=== PATIENT | male | born 1965 | race Caucasian/White ===

== ENCOUNTER 2017-08-19 17:20 | Inpatient (IN) | payer OTHER ==
[2017-08-19] MEDS ORDERED: NORMAL SALINE 1000 ML 1,000 ML IV ONE (17:56)
--- NOTE | 2017-08-19 17:59 | ER Document Report ---
ED Medical Screen (RME) - General Chief Complaint: Probable Seizure Stated Complaint: ETOH Time Seen by Provider: 08/19/17 17:48 Notes: RAPID MEDICAL EVALUATION DISCLOSURE I have seen this patient as part of a Rapid Medical Evaluation and, if applicable, placed any initially appropriate orders. The patient will be seen and fully evaluated, including a full history and physical exam, by a provider ( in Main ED or Fast Track) when a room becomes available. 51-year-old male PMH seizure disorder EtOH abuse here with aminata who reports that they found him at home naked with the house "a complete mess". Earlier in the day, he states that he had a seizure and fell and hit his head on something but does not know what he hit it on. When he woke up, he walks to the house and does not remember much after that. Family states that this is what he was acting like after his seizures. He was reportedly taken off seizure medication 1 year ago and they do not know the name of the seizure medication. His last seizure was 1 year ago. He normally drinks several shots of liquor daily and his last drink was earlier today. EXAM Alert to name and city but not year and president Clear to auscultation bilaterally Tachycardic, regular rhythm TRAVEL OUTSIDE OF THE [place] IN LAST 30 DAYS: No - Related Data Allergies/Adverse Reactions: No Known Allergies Allergy (Verified 08/19/17 17:22) Past Medical History - Social History Chew tobacco use (# tins/day): No Frequency of alcohol use: Heavy - Past Medical History Cardiac Medical History: Reports: Hx Hypertension Neurological Medical History: Reports: Hx Seizures Renal/ Medical History: Denies: Hx Peritoneal Dialysis Physical Exam - Vital signs Vitals: Temp Pulse Resp BP Pulse Ox 99.6 F 141 H 16 158/97 H 94 08/19/17 17:31 08/19/17 17:31 08/19/17 17:31 08/19/17 17:31 08/19/17 17:31 Course - Vital Signs Vital signs: Temp Pulse Resp BP Pulse Ox 99.6 F 141 H 16 158/97 H 94 08/19/17 17:31 08/19/17 17:31 08/19/17 17:31 08/19/17 17:31 08/19/17 17:31
--- NOTE | 2017-08-19 18:24 | RADIOLOGY REPORT (SQ) ---
EXAM DESCRIPTION: RIBS RIGHT W/PA CHEST COMPLETED DATE/TIME: 08/19/2017 6:09 pm REASON FOR STUDY: s/p fall and trauma to R lateral lower ribs COMPARISON: None. TECHNIQUE: Frontal view of the chest and additional views of the right ribs acquired. NUMBER OF VIEWS: 5 LIMITATIONS: None. FINDINGS: FRONTAL CXR: No pneumothorax. No pleural effusion. No atelectasis or infiltrates. RIBS: No displaced rib fractures. No lytic or blastic bony lesions. OTHER: No other significant finding. IMPRESSION: NO PNEUMOTHORAX. NO DISPLACED RIB FRACTURES. COMMENT: SITE OF TRAUMA/COMPLAINT MARKED/STAMP COMPLETED: Yes TECHNICAL DOCUMENTATION: JOB ID: [id number] [place]-72 2010 [employer]- All Rights Reserved Reading location - IP/workstation name: [email or web address]
--- NOTE | 2017-08-19 18:38 | RADIOLOGY REPORT (SQ) ---
EXAM DESCRIPTION: CT HEAD WITHOUT COMPLETED DATE/TIME: 08/19/2017 6:18 pm REASON FOR STUDY: sz, s/p fall, confused; eval bleed infarct COMPARISON: MRI 08/30/2015 TECHNIQUE: Axial images acquired through the brain without intravenous contrast. Images reviewed wi th bone, brain and subdural windows. Images stored on PACS. All CT scanners at this facility use dose modulation, iterative reconstruction, and/or weight based d osing when appropriate to reduce radiation dose to as low as reasonably achievable (ALARA). [facility]: Dose Right [facility]: CareDose [facility]: Dose Right [facility]: Teradose 4D [facility]: BEETmobile RADIATION DOSE: CT Rad equipment meets quality standard of care and radiation dose reduction techniq ues were employed. CTDIvol: 53.2 mGy. DLP: 1017 mGy-cm. mGy. LIMITATIONS: None. FINDINGS: VENTRICLES: Normal size and contour. CEREBRUM: No hemorrhage. No midline shift. No evidence for acute infarction. Normal de anda/white ma tter differentiation. No areas of low density in the white matter. CEREBELLUM: No hemorrhage. No alteration of density. No evidence for acute infarction. EXTRAAXIAL SPACES: No fluid collections. . ORBITS AND GLOBE: No intra- or extraconal masses. Normal contour of globe without masses. CALVARIUM: Similar 3.3 x 2.3 x 2.1 cm calcified osseous mass on the clivus -anterior skullbase. No fracture. PARANASAL SINUSES: No fluid or mucosal thickening. SOFT TISSUES: No hematoma. OTHER: No other significant finding. IMPRESSION: No acute intracranial findings. Similar 3.3 x 2.3 x 2.1 cm calcified osseous mass on th e clivus -anterior skullbase. EVIDENCE OF ACUTE STROKE: NO. COMMENT: Quality ID # [id number]: Final reports with documentation of one or more dose reduction techniques (e.g., Automated exposure control, adjustment of the mA and/or kV according to patient size, use of iterative reconstruction technique) TECHNICAL DOCUMENTATION: JOB ID: [id number] [place]-72 2010 [employer]- All Rights Reserved Reading location - IP/workstation name: [email or web address]
[2017-08-19 19:06] LABS: HEMATOCRIT 48.2 % (37.9-51.0); HEMOGLOBIN 16.6 g/dL (13.5-17.0); MEAN CORPUSCULAR HEMOGLOBIN 34.6 pg (27.0-33.4); MEAN CORPUSCULAR HGB CONC 34.4 g/dL (32.0-36.0); MEAN CORPUSCULAR VOLUME 101 fl (80-97); PLATELET COUNT 158 10^3/uL (150-450); RED CELL DISTRIBUTION WIDTH 12.1 % (11.5-14.0); WHITE BLOOD COUNT 25.3 10^3/uL (4.0-10.5)
[2017-08-19 19:17] LABS: ALANINE AMINOTRANSFERASE 178 U/L (21-72); ALBUMIN 5.3 g/dL (3.5-5.0); ALKALINE PHOSPHATASE 86 U/L (38-126); ANION GAP 18 (5-19); ASPARTATE AMINO TRANSFERASE 259 U/L (17-59); BILIRUBIN,DIRECT 0.7 mg/dL (0.0-0.4); BILIRUBIN,TOTAL 1.3 mg/dL (0.2-1.3); BLOOD UREA NITROGEN 21 mg/dL (7-20); CALCIUM 10.5 mg/dL (8.4-10.2); CARBON DIOXIDE 22 mmol/L (22-30); CHLORIDE 101 mmol/L (98-107); GLUCOSE 129 mg/dL (75-110); POTASSIUM 3.9 mmol/L (3.6-5.0); TOTAL PROTEIN 8.4 g/dL (6.3-8.2)
[2017-08-19 19:19] LABS: ALCOHOL < 10 mg/dL (NONE DETECTED)
[2017-08-19 19:23] LABS: ABSOLUTE LYMPHOCYTES# (MANUAL) 0.8 10^3/uL (0.5-4.7); ABSOLUTE MONOCYTES # (MANUAL) 2.3 10^3/uL (0.1-1.4); ABSOLUTE NEUTROPHILS# (MANUAL) 22.3 10^3/uL (1.7-8.2); BASOPHILS % (MANUAL) 0 % (0-2); EOSINOPHILS % (MANUAL) 0 % (0-6); LYMPHOCYTES % (MANUAL) 3 % (13-45); MONOCYTES % (MANUAL) 9 % (3-13); SEGMENTED NEUTROPHILS % (MAN) 88 % (42-78); TOTAL CELLS COUNTED 100
[2017-08-19 19:24] LABS: PLATELET COMMENT ADEQUATE; TOXIC GRANULATION SLIGHT
[2017-08-19 20:10] LABS: AMORPHOUS SEDIMENT,URINE TRACE /HPF; APPEARANCE,URINE TURBID; BILIRUBIN,URINE NEGATIVE (NEGATIVE); COLOR,URINE AMBER; GLUCOSE, URINE NEGATIVE (NEGATIVE); KETONES,URINE 20 mg/dL (NEGATIVE); LEUKOCYTE ESTERASE,URINE NEGATIVE (NEGATIVE); NITRITE,URINE NEGATIVE (NEGATIVE); PROTEIN,URINE 100 mg/dL (NEGATIVE); URINE SPECIFIC GRAVITY 1.019; UROBILINOGEN,URINE NEGATIVE mg/dL (<2.0)
[2017-08-19 20:21] LABS: URINE AMPHETAMINES SCREEN NEGATIVE; URINE BARBITURATES SCREEN NEGATIVE; URINE BENZODIAZEPINES SCREEN NEGATIVE; URINE COCAINE SCREEN NEGATIVE; URINE MARIJUANA (THC) SCREEN NEGATIVE; URINE METHADONE SCREEN NEGATIVE; URINE PHENCYCLIDINE SCREEN NEGATIVE
[2017-08-19] MEDS ORDERED: LIDOCAINE 1% INJ-PF (10 MG/ML) 30 ML SDV INJ ONE (21:36)
[2017-08-19] MEDS ORDERED: LORAZEPAM INJ 2 MG/1 ML VIAL IV ONE (21:38)
[2017-08-19] MEDS ORDERED: CEFEPIME 2 GM/D5W RTU 2 GM/50 ML RTUPB IV ONE (21:38)
[2017-08-19] MEDS ORDERED: CEFTRIAXONE INJ 1000 MG VIAL IV ONE (21:59)
[2017-08-19] MEDS ORDERED: ACYCLOVIR SODIUM INJ/PF 500 MG/10 ML SDV IV ONE ×2 (22:00→23:05)
[2017-08-19] MEDS ORDERED: VANCOMYCIN HCL INJ 1000 MG VIAL IV ONE (22:00)
[2017-08-19] MEDS ORDERED: RINGERS SOLUTION,LACTATED 1,000 ML IV ONE (22:00)
--- NOTE | 2017-08-19 22:05 | ER Document Report ---
ED General - General Chief Complaint: Probable Seizure Stated Complaint: ETOH Time Seen by Provider: 08/19/17 17:48 Cannot obtain history due to: Altered mental status Notes: Patient is a 51-year-old male with a past medical history of chronic alcohol dependence who presents with confusion. History is limited as the patient is oriented only to person. His significant other at the bedside reports that he was naked, confused, found spelled out on the ground. She thought he had been drinking heavily today and is quite surprised to hear that his alcohol is negative today. She denies that the patient ever has a history of similar symptoms in the past. She does note that at baseline he is overall a healthy individual with the exception of his alcohol dependence. She notes his baseline will be to be alert, oriented and be able to have a full normal conversation. Nothing has noted improvement or worsening of his symptoms. TRAVEL OUTSIDE OF THE [place] IN LAST 30 DAYS: No - Related Data Allergies/Adverse Reactions: No Known Allergies Allergy (Verified 08/19/17 17:22) Past Medical History - General Information source: Relative Cannot obtain history due to: Altered mental status - Social History Smoking Status: Current Every Day Smoker Chew tobacco use (# tins/day): No Frequency of alcohol use: Heavy Drug Abuse: None Lives with: Spouse/Significant other Family History: Reviewed & Not Pertinent Patient has suicidal ideation: No Patient has homicidal ideation: No - Past Medical History Cardiac Medical History: Reports: Hx Hypertension Neurological Medical History: Reports: Hx Seizures Renal/ Medical History: Denies: Hx Peritoneal Dialysis Review of Systems - Review of Systems Notes: Constitutional: Positive for fever and confusion HENT: Negative for sore throat. Eyes: Negative for visual changes. Cardiovascular: Negative for chest pain. Respiratory: Negative for shortness of breath. Gastrointestinal: Negative for abdominal pain, vomiting or diarrhea. Genitourinary: Negative for dysuria. Musculoskeletal: Negative for back pain. Skin: Negative for rash. Neurological: Positive for headache 10 point ROS negative except as marked above and in HPI. Physical Exam - Vital signs Vitals: Temp Pulse Resp BP Pulse Ox 99.6 F 141 H 16 158/97 H 94 08/19/17 17:31 08/19/17 17:31 08/19/17 17:31 08/19/17 17:31 08/19/17 17:31 Interpretation: Tachycardic, Febrile Notes: PHYSICAL EXAMINATION: GENERAL: Appears flushed, somewhat uncomfortable and overall unwell HEAD: Atraumatic, normocephalic. EYES: Pupils equal round and reactive to light, extraocular movements intact, sclera anicteric, conjunctiva are normal. ENT: nares patent, oropharynx clear without exudates. Dry mucous membranes. NECK: Normal range of motion, supple without lymphadenopathy LUNGS: Breath sounds clear to auscultation bilaterally and equal. No wheezes rales or rhonchi. HEART: Regular tachycardia without murmurs ABDOMEN: Soft, nontender, normoactive bowel sounds. No guarding, no rebound. No masses appreciated. EXTREMITIES: Normal range of motion, no pitting or edema. No cyanosis. NEUROLOGICAL: Face symmetric. Tongue protrudes midline. Extraocular motions intact. Pupils are 2 mm and equally reactive. Normal speech, normal gait. 5 out of 5 strength in both the distal and proximal upper and lower extremities bilaterally. Sensation is grossly intact throughout. PSYCH: Alert, oriented only to self. Appears profoundly confused SKIN: Warm, Dry, normal turgor, traumatic ecchymosis to the right lower flank Course - Re-evaluation Re-evalutation: 08/19/17 22:02 Patient presents profoundly confused per family, found naked, altered, normally a alert and oriented 4 at baseline. The patient is not intoxicated and his alcohol level is 0. Although patient could be having alcohol withdrawal as the etiology of some degree of his hypertension and tachycardia, he is also febrile and has a marked leukocytosis making this less likely etiology of his presentation. Moreover he is not tremulous is not and does not appear to be actively withdrawing from alcohol. His chest x-ray shows rib fractures but no evidence of acute pneumonia. Urinalysis is clear. He has no skin findings on examination to suggest an infectious etiology. Given his fever, leukocytosis, tachycardia, and profound confusion on assessment where he is only oriented to his name I did proceed with a lumbar puncture. Patient had difficulty following directions during lumbar puncture and continued to move frequently. We were able to successfully obtain CSF on the second attempt although it was a traumatic tap as the patient moved while I was in the CSF space causing some increased bleeding into the foot second through fourth tubes. The first tube is the clearest tube but again I do not suspect a subarachnoid hemorrhage as the etiology of his presentation and therefore I anticipate there will be an increasing red blood cell count but do not believe this is clinically relevant as I attribute this to the patient moving during the lumbar puncture CSF sampling. CT the head unremarkable. Patient continues to be markedly tachycardic, somewhat lethargic and disoriented. He is critically ill and will require frequent and regular reassessments. I have ordered thiamine, folate, a second liter of IV fluids, 2 mg of Ativan, 2 g of ceftriaxone, 2 g of vancomycin, and 1750 mg of acyclovir. CSF studies are pending. He will require hospitalization. Will continue to reassess frequently. 08/19/17 22:51 Patient's tachycardia has improved, current heart rate is 98 bpm. He continues to be confused, delirious, no significant change from prior. CSF studies are pending. 08/20/17 00:05 Patient's heart rate continues to be improved. He overall clinically appears improved as well. Continues to be confused. Antibiotics, antivirals thiamine and folate confused. I discussed the case with the hospitalist who has accepted the patient for admission. - Vital Signs Vital signs: Temp Pulse Resp BP Pulse Ox 100.1 F 141 H 20 158/90 H 95 08/19/17 23:11 08/19/17 17:31 08/19/17 19:49 08/19/17 19:49 08/19/17 19:49 - Laboratory Result Diagrams: 08/19/17 18:50 08/19/17 18:50 Laboratory results interpreted by me: 08/19/17 08/19/17 08/19/17 18:50 18:50 18:50 WBC 25.3 H MCV 101 H MCH 34.6 H Seg Neuts % (Manual) 88 H Lymphocytes % (Manual) 3 L Abs Neuts (Manual) 22.3 H Abs Monocytes (Manual) 2.3 H BUN 21 H Glucose 129 H Calcium 10.5 H Direct Bilirubin 0.7 H AST 259 H ALT 178 H Ammonia < 8.7 L Total Protein 8.4 H Albumin 5.3 H Urine Protein Urine Ketones Urine Blood Urine Ascorbic Acid CSF WBC CSF RBC CSF Glucose CSF Total Protein 08/19/17 08/19/17 08/19/17 19:45 21:55 21:55 WBC MCV MCH Seg Neuts % (Manual) Lymphocytes % (Manual) Abs Neuts (Manual) Abs Monocytes (Manual) BUN Glucose Calcium Direct Bilirubin AST ALT Ammonia Total Protein Albumin Urine Protein 100 H Urine Ketones 20 H Urine Blood LARGE H Urine Ascorbic Acid 40 H CSF WBC 21 H CSF RBC 3430 H CSF Glucose 91 H CSF Total Protein 338 H - Diagnostic Test Radiology reviewed: Image reviewed, Reports reviewed Radiology results interpreted by me: 08/19/17 22:51 CT head: No acute intercranial bleed or mass Chest x-ray: No acute infiltrate, right lower rib fractures Procedures - Lumbar Puncture Lumbar puncture Consent obtained: Yes - Verbal Lumbar puncture pre-procedure: Sterile PPE donned, Chloraprep applied Patient position: Sitting Needle size: 22 Lumbar puncture location: L4-5 Anesthetic type: 1% Lidocaine mL's of anesthetic: 5 Amount/type of drainage: 4 cc clear, bloody Number of attempts: 2 Complications: No Notes: 08/20/17 02:27 Patient moved well lumbar puncture needle was in the CSF space. This did result in the latter tubes becoming bloody Critical Care Note - Critical Care Note Total time excluding time spent on procedures (mins): 40 Comments: Critical care time spent obtaining history from patient or surrogate, discussions with consultants, development of treatment plan with patient or surrogate, evaluation of patient's response to treatment, examination of patient , ordering and performing treatments and interventions, ordering and review of laboratory studies, re-evaluation of patient's condition, ordering and review of radiographic studies and review of old charts Discharge - Discharge Clinical Impression: Dehydration Sepsis Qualifiers: Sepsis type: sepsis due to unspecified organism Qualified Code(s): A41.9 - Sepsis, unspecified organism Altered mental status Qualifiers: Altered mental status type: disorientation Qualified Code(s): R41.0 - Disorientation, unspecified Alcohol dependence Qualifiers: Substance use status: unspecified alcohol-induced disorder Qualified Code(s): F10.29 - Alcohol dependence with unspecified alcohol-induced disorder Condition: Fair Disposition: ADMITTED INPATIENT Admitting Provider: Hospitalist Unit Admitted: Telemetry
[2017-08-19] MEDS ORDERED: THIAMINE HCL 100 MG, FOLIC ACID 1 MG in NORMAL SALINE 250 ML IV SCH (22:15)
[2017-08-19 22:36] LABS: GLUCOSE,CSF 91 mg/dL (40-70)
[2017-08-19 22:51] LABS: PROTEIN,CSF 338 mg/dL (12-60)
[2017-08-19 22:55] LABS: CSF TUBE NUMBER 1
[2017-08-19 22:56] LABS: APPEARANCE TUBE 1 SLIGHTLY HAZY; APPEARANCE TUBE 2 CLOUDY; APPEARANCE TUBE 3 CLOUDY; COLOR TUBE 1 PINK; COLOR TUBE 2 RED; COLOR TUBE 3 RED; COLOR TUBE 4 RED
[2017-08-19 22:58] LABS: APPEARANCE ALL TUBES CLOUDY; APPEARANCE TUBE 4 CLOUDY; CSF TOTAL VOLUME 2.8 CC; VOLUME TUBE 3 0.5 CC; VOLUME TUBE 4 0.3 CC
[2017-08-19 23:05] LABS: RED BLOOD CELL,CSF 3430 /uL (0-10); WHITE BLOOD CELL,CSF 21 /uL (0-5)
[2017-08-19] MEDS ORDERED: THIAMINE HCL INJ 200 MG/2 ML VIAL ONE (23:06)
[2017-08-19] MEDS ORDERED: FOLIC ACID INJ 5 MG/1 ML 10 ML VIAL IV PRN (23:46)
[2017-08-20] MEDS ORDERED: ONDANSETRON HCL INJ/PF 4 MG/2 ML SDV IV PRN (00:13)
[2017-08-20] MEDS ORDERED: HALOPERIDOL LACTATE INJ 5 MG/1 ML VIAL IV PRN (00:22)
[2017-08-20] MEDS ORDERED: VANCOMYCIN HCL 0 MG in DEXTROSE 5%-WATER 250 ML IV NR (00:30)
--- NOTE | 2017-08-20 00:37 | PDOC H&P ---
History of Present Illness History of Present Illness: PONCE LOPEZ is a 51 year old male patient brought by family members for acute confusional state and bizarre behavior. Since patient is mentally altered history is obtained from the ER attending note and his . Per his patient is alert and oriented at his baseline this afternoon she found him neck and roaming in his room. Patient drinks hard liquor namely Rum half bottle daily. His last drink is yesterday. His initial blood work shows blood alcohol level of 0, markedly leukocytosis with white cell count of 25,[address] head is negative. Patient also noticed to have low-grade fever of 100.7. With history of confusion, tachycardia, leukocytosis and fever they are attending considered the possibility of meningitis and he did lumbar puncture and patient covered to his testicular failure cefepime and vancomycin. Further detailed history and review of systems unobtainable. Past Medical History Cardiac Medical History: Reports: Hypertension Neurological Medical History: Reports: Seizures Past Surgical History Past Surgical History: Reports: None Social History Smoking Status: Current Every Day Smoker - Advance Directive Resuscitation Status: Full Code Family History Parental Family History Reviewed: No - Unobtainable Children Family History Reviewed: Unknown Sibling(s) Family History Reviewed.: Unknown Medication/Allergy Allergies/Adverse Reactions: No Known Allergies Allergy (Verified 08/19/17 17:22) Review of Systems ROS unobtainable: Due to mental status Physical Exam Vital Signs: Temp Pulse Resp BP Pulse Ox 100.1 F 141 H 20 158/90 H 95 08/19/17 23:11 08/19/17 17:31 08/19/17 19:49 08/19/17 19:49 08/19/17 19:49 Intake & Output 08/18/17 08/19/17 08/20/17 06:59 06:59 06:59 Weight 86.6 kg General appearance: PRESENT: no acute distress Eye exam: PRESENT: conjunctival injection Respiratory exam: PRESENT: clear to auscultation deisy. ABSENT: rales, rhonchi, wheezes Cardiovascular exam: PRESENT: tachycardia GI/Abdominal exam: PRESENT: normal bowel sounds, soft. ABSENT: distended, guarding, mass, organolmegaly, rebound, tenderness Neurological exam: PRESENT: alert, altered, awake Psychiatric exam: PRESENT: depressed Results Laboratory Results: 08/19/17 18:50 08/19/17 18:50 08/19/17 08/19/17 08/19/17 18:50 18:50 18:50 WBC 25.3 H RBC 4.80 Hgb 16.6 Hct 48.2 MCV 101 H MCH 34.6 H MCHC 34.4 RDW 12.1 Plt Count 158 Seg Neutrophils % Not Reportable Lymphocytes % Not Reportable Monocytes % Not Reportable Eosinophils % Not Reportable Basophils % Not Reportable Absolute Neutrophils Not Reportable Absolute Lymphocytes Not Reportable Absolute Monocytes Not Reportable Absolute Eosinophils Not Reportable Absolute Basophils Not Reportable Sodium 141.0 Potassium 3.9 Chloride 101 Carbon Dioxide 22 Anion Gap 18 BUN 21 H Creatinine 1.11 Est GFR ( Amer) > 60 Est GFR (Non-Af Amer) > 60 Glucose 129 H Lactic Acid Calcium 10.5 H Total Bilirubin 1.3 AST 259 H ALT 178 H Alkaline Phosphatase 86 Ammonia < 8.7 L Total Protein 8.4 H Albumin 5.3 H Urine Color Urine Appearance Urine pH Ur Specific [place] Urine Protein Urine Glucose (UA) Urine Ketones Urine Blood Urine Nitrite Ur Leukocyte Esterase Urine WBC (Auto) Urine RBC (Auto) Fluid Tube Number CSF Volume CSF Appearance CSF WBC CSF RBC CSF Color (1) CSF Appearance (1) CSF Color (2) CSF Appearance (2) CSF Color (3) CSF Appearance (3) CSF Color (4) CSF Appearance (4) CSF Glucose CSF Total Protein 08/19/17 08/19/17 08/19/17 19:45 20:38 21:55 WBC RBC Hgb Hct MCV MCH MCHC RDW Plt Count Seg Neutrophils % Lymphocytes % Monocytes % Eosinophils % Basophils % Absolute Neutrophils Absolute Lymphocytes Absolute Monocytes Absolute Eosinophils Absolute Basophils Sodium Potassium Chloride Carbon Dioxide Anion Gap BUN Creatinine Est GFR ( Amer) Est GFR (Non-Af Amer) Glucose Lactic Acid 1.5 Calcium Total Bilirubin AST ALT Alkaline Phosphatase Ammonia Total Protein Albumin Urine Color GUNNER Urine Appearance TURBID Urine pH 5.0 Ur Specific [place] 1.019 Urine Protein 100 H Urine Glucose (UA) NEGATIVE Urine Ketones 20 H Urine Blood LARGE H Urine Nitrite NEGATIVE Ur Leukocyte Esterase NEGATIVE Urine WBC (Auto) 4 Urine RBC (Auto) 1 Fluid Tube Number 1 CSF Volume 2.8 CSF Appearance CLOUDY CSF WBC 21 H CSF RBC 3430 H CSF Color (1) PINK CSF Appearance (1) SLIGHTLY HAZY CSF Color (2) RED CSF Appearance (2) CLOUDY CSF Color (3) RED CSF Appearance (3) CLOUDY CSF Color (4) RED CSF Appearance (4) CLOUDY CSF Glucose CSF Total Protein 08/19/17 21:55 WBC RBC Hgb Hct MCV MCH MCHC RDW Plt Count Seg Neutrophils % Lymphocytes % Monocytes % Eosinophils % Basophils % Absolute Neutrophils Absolute Lymphocytes Absolute Monocytes Absolute Eosinophils Absolute Basophils Sodium Potassium Chloride Carbon Dioxide Anion Gap BUN Creatinine Est GFR ( Amer) Est GFR (Non-Af Amer) Glucose Lactic Acid Calcium Total Bilirubin AST ALT Alkaline Phosphatase Ammonia Total Protein Albumin Urine Color Urine Appearance Urine pH Ur Specific [place] Urine Protein Urine Glucose (UA) Urine Ketones Urine Blood Urine Nitrite Ur Leukocyte Esterase Urine WBC (Auto) Urine RBC (Auto) Fluid Tube Number CSF Volume CSF Appearance CSF WBC CSF RBC CSF Color (1) CSF Appearance (1) CSF Color (2) CSF Appearance (2) CSF Color (3) CSF Appearance (3) CSF Color (4) CSF Appearance (4) CSF Glucose 91 H CSF Total Protein 338 H Impressions: Head CT 08/19/17 17:55 IMPRESSION: No acute intracranial findings. Similar 3.3 x 2.3 x 2.1 cm calcified osseous mass on the clivus -anterior skullbase. EVIDENCE OF ACUTE STROKE: NO. Ribs w/Chest X-Ray 08/19/17 17:55 IMPRESSION: NO PNEUMOTHORAX. NO DISPLACED RIB FRACTURES. Assessment & Plan - Diagnosis (1) Alcohol dependence Qualifiers: Substance use status: unspecified alcohol-induced disorder Qualified Code(s ): F10.29 - Alcohol dependence with unspecified alcohol-induced disorder (2) Altered mental status Qualifiers: Altered mental status type: disorientation Qualified Code(s): R41.0 - Disorientation, unspecified Is this a current diagnosis for this admission?: Yes Plan: Patient empirically started on Ceclor, cefepime and vancomycin. For possible alcohol withdrawal patient comfort with Ativan, diazepam and Haldol as needed. (3) Sepsis Qualifiers: Sepsis type: sepsis due to unspecified organism Qualified Code(s): A41.9 - Sepsis, unspecified organism Is this a current diagnosis for this admission?: Yes Plan: She has leukocytosis, tachycardia, fever and altered mental status Patient has been started on cefepime ossicular present vancomycin. - Time Time Spent: 30 to 50 Minutes - Inpatient Certification Medical Necessity: Need Close Monitoring Due to Risk of Patient Decompensation, Need for IV Antibiotics
[2017-08-20] MEDS ORDERED: ACYCLOVIR SODIUM INJ/PF 500 MG/10 ML SDV IV PRN (00:49)
[2017-08-20] MEDS ORDERED: NORMAL SALINE IV ONE (01:00)
[2017-08-20] MEDS ORDERED: ACYCLOVIR SODIUM IV ONE (01:00)
[2017-08-20] MEDS: OXYCODONE-ACETAMINOPHEN 5-325 MG TABLET PO PRN (04:07)
[2017-08-20] MEDS ORDERED: THIAMINE HCL 100 MG, FOLIC ACID 1 MG in NORMAL SALINE 250 ML IV ONE (04:45)
[2017-08-20] MEDS: LANSOPRAZOLE 30 MG TAB.RAP.DR PO SCH (05:41)
[2017-08-20] MEDS ORDERED: DIAZEPAM 5 MG TABLET PO SCH (06:00)
[2017-08-20] MEDS ORDERED: ACYCLOVIR SODIUM 750 MG in NORMAL SALINE 250 ML IV SCH (06:00)
[2017-08-20] MEDS: CEFEPIME HCL 2 GM in DEXTROSE 5%-WATER 50 ML IV SCH ×2 (09:51→21:08)
[2017-08-20] MEDS: ENOXAPARIN SODIUM INJ 40 MG/0.4 ML DISP.SYRIN SUBCUT SCH (09:51)
[2017-08-20] MEDS: VANCOMYCIN HCL 1,250 MG in DEXTROSE 5%-WATER 250 ML IV SCH ×2 (09:51→21:08)
[2017-08-20] MEDS ORDERED: CEFEPIME 2 GM/D5W RTU 2 GM/50 ML RTUPB IV SCH (10:00)
[2017-08-20] MEDS ORDERED: THIAMINE HCL 100 MG, FOLIC ACID 1 MG in NORMAL SALINE 250 ML IV SCH (10:00)
[2017-08-20] MEDS: DIAZEPAM 5 MG TABLET PO SCH ×3 (11:58→23:41)
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
[2017-08-20] MEDS: LORAZEPAM INJ 2 MG/1 ML VIAL IV PRN (21:19)
[2017-08-21] MEDS: LORAZEPAM INJ 2 MG/1 ML VIAL IV PRN ×4 (00:31→23:26)
[2017-08-21] MEDS: ACETAMINOPHEN 325 MG TABLET PO PRN (00:31)
[2017-08-21] MEDS: DIAZEPAM 5 MG TABLET PO SCH ×3 (06:26→21:06)
[2017-08-21] MEDS: LANSOPRAZOLE 30 MG TAB.RAP.DR PO SCH (06:27)
[2017-08-21 06:44] LABS: ABSOLUTE EOSINOPHILS # (AUTO) 0.1 10^3/uL (0.0-0.6); ABSOLUTE LYMPHOCYTES (AUTO) 1.6 10^3/uL (0.5-4.7); ABSOLUTE MONOCYTES (AUTO) 0.5 10^3/uL (0.1-1.4); ABSOLUTE NEUT (AUTO) 7.6 10^3/uL (1.7-8.2); BASOPHILS % (AUTO) 0.4 % (0-2); EOSINOPHILS % (AUTO) 0.5 % (0-6); HEMATOCRIT 45.3 % (37.9-51.0); HEMOGLOBIN 16.1 g/dL (13.5-17.0); MEAN CORPUSCULAR HEMOGLOBIN 35.5 pg (27.0-33.4); MEAN CORPUSCULAR HGB CONC 35.5 g/dL (32.0-36.0); MEAN CORPUSCULAR VOLUME 100 fl (80-97); MONOCYTES % (AUTO) 5.3 % (3-13); PLATELET COUNT 116 10^3/uL (150-450); RED BLOOD COUNT 4.52 10^6/uL (4.35-5.55); RED CELL DISTRIBUTION WIDTH 12.4 % (11.5-14.0); SEGMENTED NEUTROPHILS % (AUTO) 77.8 % (42-78); TOTAL CELLS COUNTED % (AUTO) 100 %; WHITE BLOOD COUNT 9.8 10^3/uL (4.0-10.5)
[2017-08-21 07:02] LABS: ALANINE AMINOTRANSFERASE 325 U/L (21-72); ALBUMIN 4.4 g/dL (3.5-5.0); ALKALINE PHOSPHATASE 53 U/L (38-126); ANION GAP 9 (5-19); BILIRUBIN,DIRECT 0.4 mg/dL (0.0-0.4); BILIRUBIN,TOTAL 1.1 mg/dL (0.2-1.3); BLOOD UREA NITROGEN 10 mg/dL (7-20); CALCIUM 9.9 mg/dL (8.4-10.2); CARBON DIOXIDE 30 mmol/L (22-30); CHLORIDE 106 mmol/L (98-107); GLUCOSE 111 mg/dL (75-110); POTASSIUM 4.2 mmol/L (3.6-5.0); TOTAL PROTEIN 7.5 g/dL (6.3-8.2)
[2017-08-21 07:17] LABS: ASPARTATE AMINO TRANSFERASE 988 U/L (17-59)
[2017-08-21] MEDS: METOPROLOL SUCCINATE 50 MG TAB.SR.24H PO SCH (09:27)
[2017-08-21] MEDS: CEFEPIME HCL 2 GM in DEXTROSE 5%-WATER 50 ML IV SCH (09:28)
[2017-08-21] MEDS: ENOXAPARIN SODIUM INJ 40 MG/0.4 ML DISP.SYRIN SUBCUT SCH (09:37)
[2017-08-21] MEDS: VANCOMYCIN HCL 1,250 MG in DEXTROSE 5%-WATER 250 ML IV SCH (09:38)
[2017-08-21] MEDS ORDERED: THIAMINE HCL 100 MG, FOLIC ACID 1 MG in NORMAL SALINE 250 ML IV SCH (10:00)
[2017-08-21] MEDS: OXYCODONE-ACETAMINOPHEN 5-325 MG TABLET PO PRN ×2 (10:15→23:26)
--- NOTE | 2017-08-21 14:15 | PDOC PROGRESS REPORT ---
Subjective Progress Note for:: 08/21/17 Subjective:: No further seizures. No other complaints. States that his last drink was about 24 hours prior to his seizure. Reason For Visit: AMS, ALCOHOL WITHDRAWAL Physical Exam Vital Signs: Temp Pulse Resp BP Pulse Ox 98.4 F 70 16 161/99 H 99 08/21/17 11:44 08/21/17 11:44 08/21/17 11:44 08/21/17 11:44 08/21/17 11:44 Intake & Output 08/20/17 08/21/17 08/22/17 05:59 05:59 05:59 Intake Total 1125 1560 Output Total 300 Balance 825 1560 Weight 196 lb 3.382 oz 196 lb 10.437 oz 198 lb 13.711 oz General appearance: PRESENT: no acute distress Respiratory exam: PRESENT: clear to auscultation deisy Cardiovascular exam: PRESENT: RRR GI/Abdominal exam: PRESENT: soft Extremities exam: ABSENT: other - No edema Neurological exam: PRESENT: awake - A little clouded Psychiatric exam: PRESENT: flat affect Skin exam: PRESENT: warm Results Laboratory Results: 08/21/17 06:32 08/21/17 06:32 08/21/17 08/21/17 08/21/17 06:32 06:32 06:32 WBC 9.8 RBC 4.52 Hgb 16.1 Hct 45.3 MCV 100 H MCH 35.5 H MCHC 35.5 RDW 12.4 Plt Count 116 L Seg Neutrophils % 77.8 Lymphocytes % 16.0 Monocytes % 5.3 Eosinophils % 0.5 Basophils % 0.4 Absolute Neutrophils 7.6 Absolute Lymphocytes 1.6 Absolute Monocytes 0.5 Absolute Eosinophils 0.1 Absolute Basophils 0.0 Sodium 145.0 Potassium 4.2 Chloride 106 Carbon Dioxide 30 Anion Gap 9 BUN 10 Creatinine 0.81 Est GFR ( Amer) > 60 Est GFR (Non-Af Amer) > 60 Glucose 111 H Calcium 9.9 Magnesium 2.6 H Total Bilirubin 1.1 AST 988 H ALT 325 H Alkaline Phosphatase 53 Ammonia < 8.7 L Total Protein 7.5 Albumin 4.4 Impressions: Head CT 08/19/17 17:55 IMPRESSION: No acute intracranial findings. Similar 3.3 x 2.3 x 2.1 cm calcified osseous mass on the clivus -anterior skullbase. EVIDENCE OF ACUTE STROKE: NO. Ribs w/Chest X-Ray 08/19/17 17:55 IMPRESSION: NO PNEUMOTHORAX. NO DISPLACED RIB FRACTURES. Assessment & Plan - Diagnosis (1) Alcohol withdrawal seizure Is this a current diagnosis for this admission?: Yes Plan: No need for long-term antiseizure medication. Treatment is abstinence from alcohol. This was discussed with the patient and his (2) Alcohol dependence Qualifiers: Substance use status: unspecified alcohol-induced disorder Qualified Code(s ): F10.29 - Alcohol dependence with unspecified alcohol-induced disorder Is this a current diagnosis for this admission?: Yes Plan: Start weaning benzodiazepines (3) Altered mental status Qualifiers: Altered mental status type: disorientation Qualified Code(s): R41.0 - Disorientation, unspecified Is this a current diagnosis for this admission?: Yes Plan: Due to alcohol withdrawal
[2017-08-21] MEDS ORDERED: THIAMINE HCL 100 MG TABLET PO SCH (15:00)
--- NOTE | 2017-08-21 17:13 | Physician Advisory Note ---
Physician Advisor ProgressNote .: Pursuant to the plan for [facility], I have reviewed the medical record for this patient. Physician Advisor Statement: Please consider documenting, if you agree: 1. "SIRS, due to " (non-infectious cause), &/or "Possible sepsis, ruled out" - or state cause of sepsis .... (Sepsis dx was documented in prior notes, so we'll need some mention by attending of that being ruled out or have it continue through subsequent notes) 2. Reason for acutely climbing LFTs [?acute alcoholic hepatitis?, ...] Thanks! CK
[2017-08-22 05:54] LABS: ALANINE AMINOTRANSFERASE 369 U/L (21-72); ALKALINE PHOSPHATASE 53 U/L (38-126); ANION GAP 10 (5-19); BILIRUBIN,DIRECT 0.4 mg/dL (0.0-0.4); BILIRUBIN,TOTAL 0.9 mg/dL (0.2-1.3); BLOOD UREA NITROGEN 11 mg/dL (7-20); CALCIUM 9.9 mg/dL (8.4-10.2); CARBON DIOXIDE 32 mmol/L (22-30); CHLORIDE 104 mmol/L (98-107); GLUCOSE 111 mg/dL (75-110); PHOSPHORUS 4.1 mg/dL (2.5-4.5); POTASSIUM 4.3 mmol/L (3.6-5.0); SODIUM 145.7 mmol/L (137-145); TOTAL PROTEIN 6.5 g/dL (6.3-8.2)
[2017-08-22] MEDS: DIAZEPAM 5 MG TABLET PO SCH (06:45)
[2017-08-22] MEDS: LANSOPRAZOLE 30 MG TAB.RAP.DR PO SCH (06:45)
[2017-08-22 07:01] LABS: ASPARTATE AMINO TRANSFERASE 1066 U/L (17-59)
[2017-08-22 07:23] LABS: ABSOLUTE EOSINOPHILS # (AUTO) 0.1 10^3/uL (0.0-0.6); ABSOLUTE LYMPHOCYTES (AUTO) 1.2 10^3/uL (0.5-4.7); ABSOLUTE MONOCYTES (AUTO) 0.6 10^3/uL (0.1-1.4); BASOPHILS % (AUTO) 0.3 % (0-2); EOSINOPHILS % (AUTO) 1.3 % (0-6); HEMOGLOBIN 15.6 g/dL (13.5-17.0); LYMPHOCYTES % (AUTO) 13.4 % (13-45); MEAN CORPUSCULAR HEMOGLOBIN 35.3 pg (27.0-33.4); MEAN CORPUSCULAR HGB CONC 35.4 g/dL (32.0-36.0); MEAN CORPUSCULAR VOLUME 100 fl (80-97); MONOCYTES % (AUTO) 7.1 % (3-13); PLATELET COUNT 110 10^3/uL (150-450); RED BLOOD COUNT 4.42 10^6/uL (4.35-5.55); RED CELL DISTRIBUTION WIDTH 12.4 % (11.5-14.0); SEGMENTED NEUTROPHILS % (AUTO) 77.9 % (42-78); TOTAL CELLS COUNTED % (AUTO) 100 %
[2017-08-22] MEDS ORDERED: ONDANSETRON HCL INJ/PF 4 MG/2 ML SDV IV PRN (08:30)
[2017-08-22] MEDS: ENOXAPARIN SODIUM INJ 40 MG/0.4 ML DISP.SYRIN SUBCUT SCH (09:38)
[2017-08-22] MEDS: ACETAMINOPHEN 325 MG TABLET PO PRN (09:47)
[2017-08-22 09:53] LABS: ALANINE AMINOTRANSFERASE 411 U/L (21-72)
[2017-08-22] MEDS: METOPROLOL SUCCINATE 50 MG TAB.SR.24H PO SCH (09:59)
[2017-08-22] MEDS ORDERED: THIAMINE HCL 100 MG TABLET PO SCH (10:00)
[2017-08-22] MEDS ORDERED: LISINOPRIL 10 MG TABLET PO SCH (10:00)
[2017-08-22 10:09] LABS: ASPARTATE AMINO TRANSFERASE 1205 U/L (17-59)
[2017-08-22] MEDS ORDERED: ACETAMINOPHEN 325 MG TABLET PO PRN (10:30)
[2017-08-22 11:03] VITALS: BP 161/87
--- NOTE | 2017-08-22 12:55 | PDOC DISCHARGE SUMMARY ---
General - Admit/Disc Date/PCP Admission Date/Primary Care Provider: 08/20/17 00:29 Discharge Date: 08/22/17 - Discharge Diagnosis (1) Alcohol withdrawal seizure Is this a current diagnosis for this admission?: Yes Summary: No further treatment necessary beyond abstinence from alcohol (2) Alcohol dependence Is this a current diagnosis for this admission?: Yes Summary: Counseled at some length. He was treated with benzodiazepines and those have been weaned down. I would prefer to have kept him another day, to ensure stability and to see his transaminases start to improve, but he and his were fairly insistent about being discharged. If he continues abstinence I think he will probably do fine. (3) Altered mental status Is this a current diagnosis for this admission?: Yes Summary: Due to alcohol withdrawal. Resolved. - Additional Information Resuscitation Status: Full Code Discharge Diet: Regular Discharge Activity: Activity As Tolerated Prescriptions: Famotidine [Pepcid 20 mg Tablet] 20 mg PO BID #60 tablet Lisinopril [Prinivil 10 mg Tablet] 10 mg PO DAILY #30 tablet Thiamine HCl [Thiamine 100 mg Tablet] 100 mg PO DAILY #30 tablet Home Medications: Atorvastatin Calcium [Lipitor 20 mg Tablet] 20 mg PO QHS 08/20/17 Metoprolol Succinate [Toprol Xl] 50 mg PO DAILY 08/20/17 Famotidine [Pepcid 20 mg Tablet] 20 mg PO BID #60 tablet 08/22/17 Lisinopril [Prinivil 10 mg Tablet] 10 mg PO DAILY #30 tablet 08/22/17 Thiamine HCl [Thiamine 100 mg Tablet] 100 mg PO DAILY #30 tablet 08/22/17 History of Present Illness Patient complains of: Confusion and bizarre behavior History of Present Illness: PONCE LOPEZ is a 51 year old male patient brought by family members for acute confusional state and bizarre behavior. Since patient is mentally altered history is obtained from the ER attending note and his . Per his patient is alert and oriented at his baseline this afternoon she found him neck and roaming in his room. Patient drinks hard liquor namely Rum half bottle daily. His last drink is yesterday. His initial blood work shows blood alcohol level of 0, markedly leukocytosis with white cell count of 25,[address] head is negative. Patient also noticed to have low-grade fever of 100.7. With history of confusion, tachycardia, leukocytosis and fever they are attending considered the possibility of meningitis and he did lumbar puncture and patient covered to his testicular failure cefepime and vancomycin. Further detailed history and review of systems unobtainable. Hospital Course Hospital Course: His leukocytosis resolved quickly indicating that it had been due to an acute phase reaction. Antibiotics were discontinued. Withdrawal symptoms were managed with benzodiazepines which have been tapered down. His blood pressure remained persistently elevated so he was started on lisinopril to good effect. His transaminases have continued decline, which is not unexpected and alcoholic liver disease. I would prefer to keep him and verify that they are starting to normalize. He had his are now fairly insistent on going home, so he will be discharged. Physical Exam Vital Signs: Temp Pulse Resp BP Pulse Ox 98.5 F 65 16 161/87 H 100 08/22/17 11:02 08/22/17 11:02 08/22/17 11:02 08/22/17 11:02 08/22/17 11:02 Intake & Output 08/21/17 08/22/17 08/23/17 05:59 05:59 05:59 Intake Total 1125 2097 705 Output Total 300 Balance 825 2097 705 Weight 196 lb 10.437 oz 198 lb 13.711 oz 204 lb 2.369 oz General appearance: PRESENT: no acute distress Respiratory exam: PRESENT: clear to auscultation deisy Cardiovascular exam: PRESENT: RRR GI/Abdominal exam: PRESENT: soft Extremities exam: ABSENT: other - No edema Neurological exam: PRESENT: alert, oriented to person, oriented to place, oriented to time, oriented to situation, CN II-XII grossly intact, other - No tremor. ABSENT: motor sensory deficit Psychiatric exam: PRESENT: appropriate affect Skin exam: PRESENT: warm Results Laboratory Results: 08/22/17 05:04 08/22/17 05:04 08/22/17 08/22/17 08/22/17 05:04 05:04 09:00 WBC 9.0 RBC 4.42 Hgb 15.6 Hct 44.0 MCV 100 H MCH 35.3 H MCHC 35.4 RDW 12.4 Plt Count 110 L Seg Neutrophils % 77.9 Lymphocytes % 13.4 Monocytes % 7.1 Eosinophils % 1.3 Basophils % 0.3 Absolute Neutrophils 7.0 Absolute Lymphocytes 1.2 Absolute Monocytes 0.6 Absolute Eosinophils 0.1 Absolute Basophils 0.0 Sodium 145.7 H Potassium 4.3 Chloride 104 Carbon Dioxide 32 H Anion Gap 10 BUN 11 Creatinine 0.77 Est GFR ( Amer) > 60 Est GFR (Non-Af Amer) > 60 Glucose 111 H Calcium 9.9 Phosphorus 4.1 Magnesium 2.4 H Total Bilirubin 0.9 AST 1066 H 1205 H ALT 369 H 411 H Alkaline Phosphatase 53 Total Protein 6.5 Albumin 4.0 Impressions: Head CT 08/19/17 17:55 IMPRESSION: No acute intracranial findings. Similar 3.3 x 2.3 x 2.1 cm calcified osseous mass on the clivus -anterior skullbase. EVIDENCE OF ACUTE STROKE: NO. Ribs w/Chest X-Ray 08/19/17 17:55 IMPRESSION: NO PNEUMOTHORAX. NO DISPLACED RIB FRACTURES. Qualifiers - * PATIENT BEING DISCHARGED WITH ANY OF THE FOLLOWING DIAGNOSIS: No
[2017-08-23] MEDS ORDERED: LANSOPRAZOLE 30 MG TAB.RAP.DR PO SCH (06:00)
== END 2017-08-22 11:20 | disposition home or self-care (01) | DRG 897 ==
LOC: ER 17:20 → EH 08-20 00:29 → 3W 08-20 03:42
PROVIDERS: ADMIT Internal Medicine; ATTEND Internal Medicine
PROC: 009U3ZX Drainage of Spinal Canal, Percutaneous Approach, Diagnostic (ICD-10-PCS; principal; 2017-08-20)
DX: F10.239 Alcohol dependence with withdrawal, unspecified (principal); G40.509 Epileptic seizures related to external causes, not intractable, without status epilepticus; I10 Essential (primary) hypertension; F17.210 Nicotine dependence, cigarettes, uncomplicated; E86.0 Dehydration; K70.10 Alcoholic hepatitis without ascites; Y90.0 Blood alcohol level of less than 20 mg/100 ml
CPT/HCPCS: 36415; 70450; 80053; 80307; 81001; 82140; 82945; 83605; 83735; 84100; 84157; 84450; 84460; 85025; 87040; 87070; 87205; 87210; 87252; 89050; 96361; 96365; 96367; 96375; 99291; J0133; J0692; J0696; J1650; J2060; J3370; J3411; J3490; J7030; J7050; J7060; J7120

== ENCOUNTER 2017-10-11 14:13 | Emergency (ER) | payer OTHER ==
[2017-10-11 14:53] LABS: ABSOLUTE BASOPHILS # (AUTO) 0.1 10^3/uL (0.0-0.2); ABSOLUTE LYMPHOCYTES (AUTO) 0.8 10^3/uL (0.5-4.7); ABSOLUTE MONOCYTES (AUTO) 0.5 10^3/uL (0.1-1.4); BASOPHILS % (AUTO) 0.6 % (0-2); EOSINOPHILS % (AUTO) 0.1 % (0-6); HEMATOCRIT 49.3 % (37.9-51.0); HEMOGLOBIN 17.2 g/dL (13.5-17.0); LYMPHOCYTES % (AUTO) 8.6 % (13-45); MEAN CORPUSCULAR HEMOGLOBIN 34.8 pg (27.0-33.4); MEAN CORPUSCULAR HGB CONC 34.9 g/dL (32.0-36.0); MEAN CORPUSCULAR VOLUME 100 fl (80-97); MONOCYTES % (AUTO) 5.6 % (3-13); PLATELET COUNT 144 10^3/uL (150-450); RED BLOOD COUNT 4.94 10^6/uL (4.35-5.55); RED CELL DISTRIBUTION WIDTH 12.3 % (11.5-14.0); SEGMENTED NEUTROPHILS % (AUTO) 85.1 % (42-78); TOTAL CELLS COUNTED % (AUTO) 100 %; WHITE BLOOD COUNT 9.4 10^3/uL (4.0-10.5)
[2017-10-11 15:01] LABS: APPEARANCE,URINE CLEAR; BILIRUBIN,URINE NEGATIVE (NEGATIVE); COLOR,URINE YELLOW; GLUCOSE, URINE NEGATIVE (NEGATIVE); KETONES,URINE 20 mg/dL (NEGATIVE); LEUKOCYTE ESTERASE,URINE NEGATIVE (NEGATIVE); NITRITE,URINE NEGATIVE (NEGATIVE); PROTEIN,URINE >=500 mg/dL (NEGATIVE); URINE SPECIFIC GRAVITY 1.019; UROBILINOGEN,URINE NEGATIVE mg/dL (<2.0)
[2017-10-11 15:16] LABS: ALANINE AMINOTRANSFERASE 90 U/L (21-72); ALBUMIN 5.4 g/dL (3.5-5.0); ALKALINE PHOSPHATASE 77 U/L (38-126); ASPARTATE AMINO TRANSFERASE 98 U/L (17-59); BILIRUBIN,DIRECT 0.5 mg/dL (0.0-0.4); BILIRUBIN,TOTAL 1.1 mg/dL (0.2-1.3); BLOOD UREA NITROGEN 16 mg/dL (7-20); CALCIUM 10.2 mg/dL (8.4-10.2); GLUCOSE 163 mg/dL (75-110); POTASSIUM 4.7 mmol/L (3.6-5.0); TOTAL PROTEIN 8.4 g/dL (6.3-8.2)
[2017-10-11 15:20] LABS: URINE AMPHETAMINES SCREEN NEGATIVE; URINE BARBITURATES SCREEN NEGATIVE; URINE BENZODIAZEPINES SCREEN NEGATIVE; URINE COCAINE SCREEN NEGATIVE; URINE MARIJUANA (THC) SCREEN NEGATIVE; URINE METHADONE SCREEN NEGATIVE; URINE PHENCYCLIDINE SCREEN NEGATIVE
[2017-10-11 15:21] LABS: CARBON DIOXIDE 20 mmol/L (22-30); CHLORIDE 102 mmol/L (98-107); SODIUM 142.3 mmol/L (137-145)
[2017-10-11 15:23] LABS: ALCOHOL < 10 mg/dL (NONE DETECTED); ANION GAP 20 (5-19)
--- NOTE | 2017-10-11 15:46 | ER Document Report ---
ED General <ISSA DOMINGUEZ - Last Filed: 10/11/17 17:00> - General Mode of Arrival: Medic Information source: Patient TRAVEL OUTSIDE OF THE [place] IN LAST 30 DAYS: No <OSVALDO TEE - Last Filed: 10/12/17 09:47> - General Chief Complaint: Probable Seizure Stated Complaint: POSSIBLE SEIZURE Time Seen by Provider: 10/11/17 15:26 Notes: Patient is a 51 year old male presenting to the emergency department via EMS for a possible seizure. 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 At bedside patient states he feels scared and complains of some right sided ear pain. Patient was seen in this emergency department approximately 8 weeks ago for a possible seizure and was admitted due to sepsis, altered mental status and alcohol dependence. Patient stated at that time he would drink half a bottle( size not specified) of rum daily. Patient and today denies these claims and states she normally drinks a glass or two daily to help with nerves. Patient had another seizure approximately 2 years ago where he had to be intubated and sent to [facility]. He states he was put on seizure medication (can not specify which) after discharged from [facility] but then instructed to discontinue said medication 1 year later. Patient is currently taking Metoprolol. (OSVALDO TEE) - Related Data Allergies/Adverse Reactions: No Known Allergies Allergy (Verified 08/19/17 17:22) Past Medical History - General Information source: Patient - Social History Smoking Status: Current Every Day Smoker Frequency of alcohol use: Heavy Drug Abuse: None Family History: Reviewed & Not Pertinent Patient has suicidal ideation: No Patient has homicidal ideation: No - Past Medical History Cardiac Medical History: Reports: Hx Hypertension Neurological Medical History: Reports: Hx Seizures <OSVALDO TEE - Last Filed: 10/12/17 09:47> Review of Systems - Review of Systems Constitutional: No symptoms reported EENT: See HPI Cardiovascular: No symptoms reported Respiratory: No symptoms reported Gastrointestinal: No symptoms reported Genitourinary: No symptoms reported Male Genitourinary: No symptoms reported Musculoskeletal: No symptoms reported Skin: No symptoms reported Hematologic/Lymphatic: No symptoms reported Neurological/Psychological: See HPI, Seizure -: Yes All other systems reviewed and negative <OSVALDO TEE - Last Filed: 10/12/17 09:47> Physical Exam - General General appearance: Appears well, Alert In distress: None - HEENT Head: Normocephalic, Other - Right frontal parietal reigion contains some dried blood, swelling and a contusion. Eyes: Normal Conjunctiva: Normal Extraocular movements intact: Yes Pupils: PERRL External canal: Other - Ecchymosis to the right helix, no hematoma. Mouth/Lips: Other - No tongue injury Neck: Normal - Respiratory Respiratory status: No respiratory distress - Cardiovascular Rhythm: Regular Heart sounds: Normal auscultation Murmur: No Friction rub: No Gallop: None auscultated - Abdominal Inspection: Normal - Back Back: Normal - Extremities General upper extremity: Normal ROM General lower extremity: Normal ROM - Neurological Neuro grossly intact: Yes Cognition: Normal Orientation: AAOx4 Howard Coma Scale Eye Opening: Spontaneous Howard Coma Scale Verbal: Oriented Lauren Coma Scale Motor: Obeys Commands Howard Coma Scale Total: 15 Speech: Normal - Psychological Associated symptoms: Normal affect, Normal mood - Skin Skin Temperature: Warm Skin Moisture: Dry <OSVALDO TEE - Last Filed: 10/12/17 09:47> - Vital signs Vitals: Resp BP Pulse Ox 15 183/105 H 95 10/11/17 14:23 10/11/17 14:23 10/11/17 14:23 Course - Laboratory Result Diagrams: 10/11/17 14:20 10/11/17 14:20 <ISSA DOMINGUEZ - Last Filed: 10/11/17 17:00> - Laboratory Result Diagrams: 10/11/17 14:20 10/11/17 14:20 <OSVALDO TEE - Last Filed: 10/12/17 09:47> - Re-evaluation Re-evalutation: 10/11/17 16:59 The patient's blood pressures running higher than normal for him by history. The hemoglobin is slightly higher than during his visit and admission last month. The BUN is not quite as high as it was last month. The urine 7 weeks ago had elevated protein, which is much higher today. He is advised to go home and drink lots of fluids and get plenty of rest this weekend. He is also advised to not drink any alcohol this weekend. He is given copies of his lab work to take to his doctor on Saturday to recheck his urine to see if he continues to spill protein. (ISSA DOMINGUEZ) - Vital Signs Vital signs: Temp Pulse Resp BP Pulse Ox 19 158/109 H 96 10/11/17 17:21 10/11/17 17:21 10/11/17 17:21 - Laboratory Laboratory results interpreted by me: 10/11/17 10/11/17 10/11/17 14:20 14:20 14:36 Hgb 17.2 H MCV 100 H MCH 34.8 H Plt Count 144 L Seg Neutrophils % 85.1 H Lymphocytes % 8.6 L Carbon Dioxide 20 L Anion Gap 20 H Glucose 163 H Direct Bilirubin 0.5 H AST 98 H ALT 90 H Total Protein 8.4 H Albumin 5.4 H Urine Protein >=500 H Urine Ketones 20 H Urine Ascorbic Acid 40 H Discharge <ISSA DOMINGUEZ - Last Filed: 10/11/17 17:00> <OSVALDO TEE - Last Filed: 10/12/17 09:47> - Discharge Clinical Impression: Seizure Proteinuria Qualifiers: Proteinuria type: unspecified Qualified Code(s): R80.9 - Proteinuria, unspecified Condition: Stable Disposition: HOME, SELF-CARE Additional Instructions: Seizure: You have had a seizure. Seizure disorders (epilepsy) of one sort or another affect about one out of 50 people. The seizure occurs because of abnormal electrical activity in the brain. Seizures may be due to drugs and alcohol, strokes, brain injury, or infection. In the most common form of epilepsy, no cause can be found. You will require further evaluation to determine the cause of your seizure, and to determine whether anti-seizure medication is required. This follow-up testing is important, so please call us if you encounter problems with scheduling of tests or appointments. YOU SHOULD NOT DRIVE until released to do so by your physician. The law requires that seizures be reported to the bulk delivery driver's license bureau--a seizure while driving could be catastrophic. Call the doctor if seizures recur, or if you develop new symptoms such as fever, severe headache, stiff neck, confusion or increasing sleepiness, weakness or numbness, or visual problems. Drink plenty of fluids and get plenty of rest over the weekend. Do not drink alcohol. Be sure to take your blood pressure medication, and monitor your blood pressure. Follow-up with your doctor Saturday to recheck your urine for protein and to discuss your recurrent seizure. RETURN TO THE EMERGENCY ROOM IF ANY NEW OR WORSENING SYMPTOMS. Debbieibe Attestation: 10/11/17 16:48 I personally performed the services described in the documentation, reviewed and edited the documentation which was dictated to the scribe in my presence, and it accurately records my words and actions. (ISSA DOMINGUEZ) Scribe Documentation - Scribe Written by Cecy:: Cecy Baird, 10/11/2017 16:11 acting as scribe for :: Nasima <OSVALDO TEE - Last Filed: 10/12/17 09:47>
[2017-10-11 17:23] VITALS: BP 158/109
== END 2017-10-11 17:25 | disposition home or self-care (01) ==
LOC: ER 14:13
DX: G40.909 Epilepsy, unspecified, not intractable, without status epilepticus (principal); S09.90XA Unspecified injury of head, initial encounter; W01.198A Fall on same level from slipping, tripping and stumbling with subsequent striking against other object, initial encounter; Y93.H3 Activity, building and construction; Y92.008 Other place in unspecified non-institutional (private) residence as the place of occurrence of the external cause; R80.9 Proteinuria, unspecified; I10 Essential (primary) hypertension; F17.200 Nicotine dependence, unspecified, uncomplicated
CPT/HCPCS: 36415; 80053; 80307; 81001; 83735; 85025; 99284